=== PATIENT | female | born 1965 | race Asian ===

== ENCOUNTER 2017-02-16 18:45 | Inpatient (IN) | payer BC ==
[~2017-02-16] VITALS: Ht 154.9 cm; Wt 51.7 kg
[~2017-02-16 18:45] MED LIST: DIOVAN80 MG PO; FERROUS SULFAT325 MG PO; MULTI-DAY VITAM1 TAB PO; OXYCODONE HCL5 MG PO; PHENADOZ25 MG/SUPP RC; VITAMIN D2000 UNIT PO; VIVELLE-DOT 00.05 MG TD
[2017-02-16 20:17] LABS: BASOPHILS 0.1 % (0-2); EOSINOPHILS 0.2 % (0-7); HEMATOCRIT 43.8 % (36.0-48.0); HEMOGLOBIN 15.2 g/dL (12-16); IMMATURE GRANULOCYTES 0.1 % (0-5); LYMPHOCYTES 10.9 % (15-50); MCH 31.4 pg (26.0-34.0); MCHC 34.7 g/dL (31.0-37.0); MCV 90.5 fL (80.0-100.0); MEAN PLATELET VOLUME 10.9 fL (7.4-10.4); MONOCYTES 4.6 % (2-11); NEUTROPHILS 84.1 % (40-80); PLATELET COUNT 207 10x3/uL (130-400); RBC 4.84 10x6/uL (4.00-5.40); RDW 12.6 % (11.5-14.5); WBC 14.5 10x3/uL (4.8-10.8)
[2017-02-16 20:24] LABS: APPEARANCE CLEAR (CLEAR); BILIRUBIN NEGATIVE (NEGATIVE); COLOR YELLOW (YELLOW); GLUCOSE NEGATIVE (NEGATIVE); KETONE NEGATIVE (NEGATIVE); LEUKOCYTE ESTERASE NEGATIVE (NEGATIVE); NITRITE NEGATIVE (NEGATIVE); PROTEIN NEGATIVE (NEGATIVE); SPECIFIC GRAVITY 1.015 (1.005-1.020); UROBILINOGEN NORMAL (NORMAL)
[2017-02-16 20:26] LABS: ALBUMIN 4.5 g/dL (3.4-5.0); ALKALINE PHOSPHATASE 71 U/L (46-116); ALT (SGPT) 27 U/L (10-68); AMYLASE - SERUM 67 U/L (25-115); BILIRUBIN - TOTAL 0.82 mg/dL (0.2-1.3); CALC OSMOLALITY 282 mosm/kg (275-300); CALCIUM 9.2 mg/dL (8.5-10.1); CARBON DIOXIDE 30.1 mmol/L (21.0-32.0); CHLORIDE - SERUM 102 mmol/L (98-107); CREATININE - SERUM 0.7 mg/dL (0.6-1.3); GLUCOSE 107 mg/dL (74-106); LIPASE 237 U/L (73-393); POTASSIUM - SERUM 3.9 mmol/L (3.5-5.1); PROTEIN - SERUM 8.7 g/dL (6.4-8.2); SODIUM 142 mmol/L (136-145); UREA NITROGEN 13 mg/dL (7-18); eGFR NON AFRICAN AMERICAN > 90 mL/min (90-120)
--- NOTE | 2017-02-17 01:35 | NUR ---
RECIEVED PT TO FLOOR FROM ED VIA STRETCHER. PT ASSISTED TO MOVE SELF TO BED. NGT TO RIGHT NARE PATENT. IV TO LEFT WRIST PATENT AND NS HANGING AT THIS TIME. PT IS AMBULATORY BUT WAS INSTRUCTED TO CALL FOR ANY ASSISTANCE NEEDED. ALERT AND ORIENTED AND ABLE TO VERBALIZE NEEDS. PT DENIES ANY PAIN AT THIS TIME. VSS. NO NEEDS ARE VERBALIZED AT THIS TIME. PT AND ORIENTED TO ROOM AND USE OF CALL LIGHT. SIDE RAILS UP X 2. BED IS IN LOWEST POSITION. CALL LIGHT IN REACH.
--- NOTE | 2017-02-17 01:50 | NUR ---
ADMIT ASSESSMENT COMPLETED. NO NEEDS ARE VOICED. WILL MONITOR. AT BEDSIDE. SIDE RAILS X 2. BED LOW. CALL LIGHT IN REACH.
[2017-02-17 02:43] VITALS: BP 158/79; BMI 21.5
[2017-02-17 04:00] VITALS: BP 142/82
[2017-02-17 04:59] LABS: BASOPHILS 0 % (0-2); EOSINOPHILS 1.5 % (0-7); HEMOGLOBIN 12.5 g/dL (12-16); IMMATURE GRANULOCYTES 0.1 % (0-5); LYMPHOCYTES 18.3 % (15-50); MCH 31.2 pg (26.0-34.0); MCHC 34.7 g/dL (31.0-37.0); MCV 89.8 fL (80.0-100.0); MONOCYTES 4.9 % (2-11); NEUTROPHILS 75.2 % (40-80); PLATELET COUNT 210 10x3/uL (130-400); RBC 4.01 10x6/uL (4.00-5.40); RDW 12.6 % (11.5-14.5)
[2017-02-17 05:13] LABS: WBC 7.8 10x3/uL (4.8-10.8)
[2017-02-17 06:08] LABS: ALKALINE PHOSPHATASE 57 U/L (46-116); BILIRUBIN - TOTAL 0.97 mg/dL (0.2-1.3); CALC OSMOLALITY 283 mosm/kg (275-300); CALCIUM 8.1 mg/dL (8.5-10.1); CARBON DIOXIDE 27.1 mmol/L (21.0-32.0); CHLORIDE - SERUM 108 mmol/L (98-107); CREATININE - SERUM 0.6 mg/dL (0.6-1.3); GLUCOSE 107 mg/dL (74-106); POTASSIUM - SERUM 3.7 mmol/L (3.5-5.1); PROTEIN - SERUM 6.8 g/dL (6.4-8.2); SODIUM 143 mmol/L (136-145); UREA NITROGEN 11 mg/dL (7-18); eGFR NON AFRICAN AMERICAN > 90 mL/min (90-120)
[2017-02-17 06:09] LABS: ALBUMIN 3.3 g/dL (3.4-5.0); ALT (SGPT) 37 U/L (10-68)
--- NOTE | 2017-02-17 07:00 | NUR ---
PT REC'D FROM [facility]. RESTING IN BED WITH SON AT BEDSIDE. AAOX4. PT SPEAKS LITTLE ANGUILLAN, BUT IS ABLE TO ANSWER SIMPLE QUESTIONS. NO COMPLAINTS OF PAIN. NGT TO Nyasia JETER CURRENTLY PULLING NOTHING TO LIWS. BOWEL SOUNDS ACTIVE X4 QUADS. NO PAIN UPON PALPATION. PT STATES SHE HAD A BM YESTERDAY MORNING. REGULAR HEART RATE AND RHYTHM. BED LOW, CALL LIGHT IN REACH, DENIES NEEDS. CPOC.
[2017-02-17] MEDS ORDERED: MICARDIS20 MG PO (07:20)
[2017-02-17 07:39] VITALS: BP 157/90
--- NOTE | 2017-02-17 09:30 | NUR ---
NEW BAG OF SALINE HUNG PER SEP. PT REQUESTING WARM WATER TO DRINK. EXPLAINED TO PT THAT SHE COULD NOT HAVE ANYTHING BY MOUTH. PT STATES SHE UNDERSTANDS AND VOICED NO QUESTIONS. BED LOW, CALL LIGHT IN REACH, DENIES NEEDS. CPOC.
[2017-02-17 12:17] VITALS: BP 145/82
[2017-02-17 13:45] VITALS: Ht 154.9 cm; Wt 51.7 kg
--- NOTE | 2017-02-17 14:00 | NUR ---
NGT ADVANCED APPROXIMATELY 5CM PER RADIOLOGIST. APPROXIMATELY 150CC'S OF GREEN FLUID IN COLLECTION CONTAINER. BED LOW, CALL LIGHT IN REACH, DENIES NEEDS. CPOC.
[2017-02-17 15:35] VITALS: BP 155/83
--- NOTE | 2017-02-17 15:52 | NUR ---
DR. HULL AT BEDSIDE DISCUSSING POC. NGT TO R STEFFANY DC'D WITH TIP INTACT. PT TOLERATED WELL. AT BEDSIDE. WARM WATER PROVIDED.
[2017-02-17 19:00] VITALS: BP 145/74
--- NOTE | 2017-02-17 19:15 | NUR ---
RECIEVED SHIFT REPORT. PT IS LYING IN BED. ALERT AND ORIENTED AND ABLE TO VERBALIZE NEEDS. IV IS PATENT AND FLUIDS ARE RUNNING PER ORDER. PT IS AMBULATORY BUT WAS INSTRUCTED TO CALL FOR ANY ASSISTANCE NEEDED. PT DENIES ANY PAIN AT THIS TIME. NO NEEDS ARE VERBALIZED AT THIS TIME. WILL CONTINUE TO MONITOR. IS AT THE BEDSIDE. SIDE RAILS ARE UP X 2. BED IS IN LOWEST POSITION. CALL LIGHT IS WITHIN REACH.
--- NOTE | 2017-02-17 21:02 | NUR ---
SHIFT ASSESSMENT COMPLETED. NIGHT MEDS GIVEN WITH NO PROBLEMS. NO NEEDS ARE VOICED. WILL MONITOR. SIDE RAILS X 2. BED LOW. CALL LIGHT IN REACH. AT BEDSIDE.
[2017-02-18] VITALS: BP 128/61
[2017-02-18 04:00] VITALS: BP 121/64
[2017-02-18 06:08] LABS: BASOPHILS 0 % (0-2); EOSINOPHILS 2.9 % (0-7); HEMATOCRIT 34.5 % (36.0-48.0); HEMOGLOBIN 11.9 g/dL (12-16); IMMATURE GRANULOCYTES 0.2 % (0-5); LYMPHOCYTES 23.5 % (15-50); MCH 31.1 pg (26.0-34.0); MCHC 34.5 g/dL (31.0-37.0); MCV 90.1 fL (80.0-100.0); MEAN PLATELET VOLUME 10.1 fL (7.4-10.4); MONOCYTES 6.7 % (2-11); NEUTROPHILS 66.7 % (40-80); PLATELET COUNT 202 10x3/uL (130-400); RBC 3.83 10x6/uL (4.00-5.40); RDW 12.5 % (11.5-14.5)
[2017-02-18 06:15] LABS: WBC 5.5 10x3/uL (4.8-10.8)
[2017-02-18 06:41] LABS: CALC OSMOLALITY 286 mosm/kg (275-300); CALCIUM 8.3 mg/dL (8.5-10.1); CARBON DIOXIDE 29.8 mmol/L (21.0-32.0); CHLORIDE - SERUM 107 mmol/L (98-107); CREATININE - SERUM 0.6 mg/dL (0.6-1.3); GLUCOSE 87 mg/dL (74-106); MAGNESIUM - SERUM 2.3 mg/dL (1.8-2.4); POTASSIUM - SERUM 3.8 mmol/L (3.5-5.1); SODIUM 145 mmol/L (136-145); UREA NITROGEN 9 mg/dL (7-18); eGFR NON AFRICAN AMERICAN > 90 mL/min (90-120)
--- NOTE | 2017-02-18 07:20 | NUR ---
AWAKE AND ALERT AT THIS TIME. STATING THAT SHE IS HOPEFUL TO D/C HOME TODAY. IV PATENT AND DENIES PAIN OR NEEDS AT THIS TIME. WILL CONTINUE WITH PLAN OF CARE.
[2017-02-18 08:31] VITALS: BP 143/74
[2017-02-18] MEDS ORDERED: MIRALAX17 GM PO (08:32)
--- NOTE | 2017-02-18 08:53 | NUR ---
Patient Name: BEATRICE SERRANO Admission Status: ER Accout number: [id number] Admission Date: 02-16-2017 : 1965 Admission Diagnosis:UNSPECIFIED INTESTINAL OBSTRUCTION Attending: RONEY Current LOS: 2 Anticipated DC Date: 02-18-2017 Planned Disposition: Home Primary Insurance: [employer] Discharge Planning Comments: CM MET WITH PAITIENT AND SPOUSE (YOSELYN) AND SHE STATED THAT HER SPOUSE WOULD DRIVE HER HOME TODAY AT DISCHARGE AND THEY HAVE ABOUT 10 STEPS W/RAILS TO ENTER HOME AND NO STAIRS INSIDE. PATIENT STATED SHE IS INDEPENDENT WITH HER CARE AND HAS NO DME AT HOME. PATIENTS PCP IS DR. BUCKNER AND PHARMACY IS [facility] [address]. PATIENT DOES NOT WANT HOME HEALTH AND DID NOT HAVE ANY OTHER NEEDS FOR D/C TODAY. CM WILL CONTINUE TO FOLLOW PATIENT WITH D/C NEEDS AND PLANS. PCP DR. BUCKNER [facility] [place]- [phone] YOSELYN (SPOUSE) [phone] Women'S Swim Coach: Allyson Zambrano Is the patient Alert and Oriented? Yes 0 * How many steps to enter\exit or inside your home? 10 W/RAIL 0 * PCP DR. SANCHEZ 0 * [facility] [address] [facility] * Preadmission Environment Home with Family 0 * ADLs Independent 0 * Equipment None 0 * List name and contact numbers for known caregivers / representatives who currently or will assist patient after discharge: YOSELYN (SPOUSE) [phone] * Community resources currently utilized None 0 * Additional services required to return to the preadmission environment? No 0 * Can the patient safely return to the preadmission environment? Yes 0 * Has this patient been hospitalized within the prior 30 days at any hospital? No 0 Grand Total: 0
--- NOTE | 2017-02-18 09:07 | NUR ---
PT HAD MEDIUM SIZED FORMED STOOL AT THIS TIME THAT WAS BROWN IN COLOR.
--- NOTE | 2017-02-18 10:12 | NUR ---
DISCHARGE PAPERWORK REVIEWED AT THIS TIME. IV TO LEFT WRIST D/C WITH CATH TIP INTACT. DENIES QUESTIONS OR CONCERNS. CALL LIGHT IN REACH, WILL CONTINUE WITH PLAN OF CARE.
== END 2017-02-18 10:27 | disposition home or self-care (01) | DRG 390 ==
LOC: D.ER 18:45 → D.MS 02-18 10:27
PROVIDERS: Emergency Medicine; Family Medicine; Surgery; ADMIT Surgery
DX: K56.60 Unspecified intestinal obstruction (principal); I10 Essential (primary) hypertension

== ENCOUNTER → 2017-05-07 08:37 | Outpatient (CLI) | payer BC ==
[2017-02-17 13:45] VITALS: BMI 21.5
[~2017-05-07 08:37] MED LIST changes: +MICARDIS20 MG PO; +MIRALAX17 GM PO
== END | disposition home or self-care (01) ==
LOC: D.US 08:37 → D.RAD 09:30
DX: R10.9 Unspecified abdominal pain (principal)

== ENCOUNTER 2017-08-07 19:29 | Emergency (ER) | payer BC ==
[2017-02-17 13:45] VITALS: BMI 21.5
== END 2017-08-07 21:03 | disposition home or self-care (01) ==
LOC: D.ER 19:29
DX: R05 Cough (principal); I10 Essential (primary) hypertension

== ENCOUNTER 2018-10-13 01:21 | Emergency (ER) | payer BC ==
[~2018-10-13] VITALS: Ht 154.9 cm; Wt 52.3 kg
[2018-10-13 01:26] VITALS: Ht 154.9 cm; Wt 52.3 kg
[2018-10-13] MEDS ORDERED: ANTIVERT12.5 MG PO (01:28)
[2018-10-13] MEDS ORDERED: ZOFRAN4 MG PO (01:28)
[2018-10-13] MEDS ORDERED: CEFUROXIME500 MG PO (01:29)
[2018-10-13 01:53] LABS: APPEARANCE CLEAR (CLEAR); BILIRUBIN NEGATIVE (NEGATIVE); COLOR YELLOW (YELLOW); GLUCOSE NEGATIVE (NEGATIVE); KETONE NEGATIVE (NEGATIVE); NITRITE NEGATIVE (NEGATIVE); PROTEIN NEGATIVE (NEGATIVE); SPECIFIC GRAVITY 1.015 (1.005-1.020); UROBILINOGEN NORMAL (NORMAL)
[2018-10-13 02:04] LABS: BASOPHILS 0.2 % (0-2); EOSINOPHILS 0.3 % (0-7); HEMATOCRIT 38.9 % (36.0-48.0); HEMOGLOBIN 13.5 g/dL (12-16); IMMATURE GRANULOCYTES 0.1 % (0-5); LYMPHOCYTES 15.3 % (15-50); MCH 30.8 pg (26.0-34.0); MCHC 34.7 g/dL (31.0-37.0); MCV 88.8 fL (80.0-100.0); MEAN PLATELET VOLUME 9.6 fL (7.4-10.4); MONOCYTES 5.4 % (2-11); NEUTROPHILS 78.7 % (40-80); PLATELET COUNT 194 10x3/uL (130-400); RBC 4.38 10x6/uL (4.00-5.40); RDW 12.4 % (11.5-14.5); WBC 9.9 10x3/uL (4.8-10.8)
[2018-10-13 02:14] LABS: ALBUMIN 3.9 g/dL (3.4-5.0); ALKALINE PHOSPHATASE 52 U/L (46-116); ALT (SGPT) 27 U/L (10-68); BILIRUBIN - TOTAL 0.81 mg/dL (0.2-1.3); CALC OSMOLALITY 278 mosm/kg (275-300); CALCIUM 8.5 mg/dL (8.5-10.1); CARBON DIOXIDE 30.7 mmol/L (21.0-32.0); CHLORIDE - SERUM 101 mmol/L (98-107); CREATININE - SERUM 0.8 mg/dL (0.6-1.3); GLUCOSE 103 mg/dL (74-106); LIPASE 195 U/L (73-393); POTASSIUM - SERUM 3.9 mmol/L (3.5-5.1); PROTEIN - SERUM 7.7 g/dL (6.4-8.2); SODIUM 140 mmol/L (136-145); UREA NITROGEN 13 mg/dL (7-18); eGFR NON AFRICAN AMERICAN 79 mL/min (90-120)
[2018-10-13 02:55] VITALS: BP 129/74
== END 2018-10-13 02:56 | disposition home or self-care (01) ==
LOC: D.ER 01:21
PROVIDERS: Emergency Medicine
DX: K59.00 Constipation, unspecified (principal); I10 Essential (primary) hypertension

== ENCOUNTER 2018-10-15 06:56 | Emergency (ER) | payer BC ==
[~2018-10-15] VITALS: Ht 154.9 cm; Wt 50.0 kg
[~2018-10-15 06:56] MED LIST changes: +ANTIVERT12.5 MG PO; +CEFUROXIME500 MG PO; +ZOFRAN4 MG PO
[2018-10-15 07:03] VITALS: Ht 154.9 cm; Wt 50.0 kg
[2018-10-15] MEDS ORDERED: MECLIZINE HCL25 MG PO (09:15)
[2018-10-15 09:26] VITALS: BP 155/83
== END 2018-10-15 09:21 | disposition home or self-care (01) ==
LOC: D.ER 06:56
DX: R42 Dizziness and giddiness (principal)

== ENCOUNTER 2019-03-19 21:31 | Emergency (ER) | payer BC ==
[~2019-03-19] VITALS: Ht 154.9 cm; Wt 52.3 kg
[~2019-03-19 21:31] MED LIST changes: +MECLIZINE HCL25 MG PO
[2019-03-19 21:40] VITALS: Ht 154.9 cm; Wt 52.3 kg
[2019-03-19 22:00] LABS: BASOPHILS 0.1 % (0-2); EOSINOPHILS 0.8 % (0-7); HEMATOCRIT 43.4 % (36.0-48.0); HEMOGLOBIN 15.7 g/dL (12-16); IMMATURE GRANULOCYTES 0.1 % (0-5); LYMPHOCYTES 16.5 % (15-50); MCH 31.5 pg (26.0-34.0); MCHC 36.2 g/dL (31.0-37.0); MCV 87.1 fL (80.0-100.0); MEAN PLATELET VOLUME 10.2 fL (7.4-10.4); MONOCYTES 6.3 % (2-11); NEUTROPHILS 76.2 % (40-80); PLATELET COUNT 227 10x3/uL (130-400); RBC 4.98 10x6/uL (4.00-5.40); RDW 12.4 % (11.5-14.5); WBC 14.3 10x3/uL (4.8-10.8)
[2019-03-19 22:00] LABS: APPEARANCE CLEAR (CLEAR); BILIRUBIN NEGATIVE (NEGATIVE); COLOR YELLOW (YELLOW); GLUCOSE NEGATIVE (NEGATIVE); KETONE NEGATIVE (NEGATIVE); NITRITE NEGATIVE (NEGATIVE); PROTEIN TRACE mg/dL (NEGATIVE); UROBILINOGEN NORMAL (NORMAL)
[2019-03-19 22:03] LABS: BACTERIA FEW /hpf (NONE SEEN); EPITHELIAL CELLS 0-5 /hpf (0-5); MUCUS >1+ /lpf (NONE SEEN); RED CELLS - URINE 0-5 /hpf (0-5); WHITE CELLS - URINE 0-5 /hpf (0-5)
[2019-03-19 22:11] LABS: ALBUMIN 4.9 g/dL (3.4-5.0); ALKALINE PHOSPHATASE 74 U/L (46-116); ALT (SGPT) 30 U/L (10-68); AMYLASE - SERUM 75 U/L (25-115); BILIRUBIN - TOTAL 1.06 mg/dL (0.2-1.3); CALC OSMOLALITY 279 mosm/kg (275-300); CALCIUM 9.8 mg/dL (8.5-10.1); CARBON DIOXIDE 31.6 mmol/L (21.0-32.0); CHLORIDE - SERUM 97 mmol/L (98-107); CREATININE - SERUM 0.8 mg/dL (0.6-1.3); GLUCOSE 109 mg/dL (74-106); LIPASE 236 U/L (73-393); POTASSIUM - SERUM 3.7 mmol/L (3.5-5.1); PROTEIN - SERUM 9.6 g/dL (6.4-8.2); SODIUM 140 mmol/L (136-145); UREA NITROGEN 12 mg/dL (7-18); eGFR NON AFRICAN AMERICAN 79 mL/min (90-120)
[2019-03-19] MEDS ORDERED: ZOFRAN ODT4 MG/UDTAB PO (22:25)
[2019-03-19 23:13] VITALS: BP 138/82
== END 2019-03-19 23:13 | disposition home or self-care (01) ==
LOC: D.ER 21:31
PROVIDERS: Emergency Medicine
DX: R11.10 Vomiting, unspecified (principal); R10.9 Unspecified abdominal pain

== ENCOUNTER 2020-10-07 10:45 | Outpatient (CLI) | payer BC ==
[2019-03-19 21:40] VITALS: BMI 21.7
[~2020-10-07 10:45] MED LIST changes: +ZOFRAN ODT4 MG/UDTAB PO
== END 2020-10-07 11:15 | disposition home or self-care (01) ==
LOC: D.MAMMO 10:45
PROVIDERS: ATTEND Family Medicine
DX: Z12.31 Encounter for screening mammogram for malignant neoplasm of breast (principal)